=== PATIENT | male | born 1965 | race Caucasian/White ===

== ENCOUNTER 2021-10-09 07:46 | Outpatient (CLI) | payer OTHER, SELFPAY ==
--- NOTE | ~2021-10-09 | US_ITS ---
EXAMINATION: US thyroid DATE: 10/09/2021 08:04 INDICATION: Enlarged thyroid TECHNIQUE: Multiple ultrasound images of the thyroid were obtained. COMPARISON: None. FINDINGS: The right thyroid lobe measures 5.6 x 2.5 x 1.8 cm. The left thyroid lobe measures 5.8 x 2.9 x 2.9 c m. Thyroid isthmus measures 5 mm in thickness. There is a 2.5 x 2.3 x 1.6 cm wider than tall heteroge neous solid isoechoic nodule with smooth and ill-defined margins and without echogenic foci in the in ferior left thyroid (TI-RADS 3, mildly suspicious , FNA if >=2.5 cm, annual followup is >=1.5 cm). Di ffuse increased echogenicity and coarsened echotexture throughout the thyroid. IMPRESSION: 1. 2.5 cm TI RADS 3 left thyroid nodule for which ultrasound-guided biopsy would be recommended. Reviewed, dictated and finalized at location A. ERT[facility] ECONOMIST IMPRESSION: 1. 2.5 cm TI RADS 3 left thyroid nodule for which ultrasound-guided biopsy woul d be recommended.
== END 2021-10-09 07:47 | disposition home or self-care (01) ==
PROVIDERS: PCP Family Medicine; Visit Provider Physician Assistant
DX: E04.9 Nontoxic goiter, unspecified (principal)
CPT/HCPCS: 76536